=== PATIENT | female | born 1990 | race Caucasian/White ===

== ENCOUNTER 2016-04-14 16:07 | Emergency (ER) | payer BC, OTHER ==
--- NOTE | 2016-05-05 08:06 | ER ---
ADMIT: 04/14/2016 RM/LOC: ER [facility] MR#: [id number] [address] [id number] LUCIANO FOWLER [address] [place] [address] [place] [address] Emergency Room Report SEX: F AGE: 26 : 1990 DATE: 04/14/2016 ADDENDUM: CHIEF COMPLAINT: Left shoulder pain. HISTORY OF PRESENT ILLNESS: This is a 26-year-old who was walking a friend's dog. She tripped and fell onto her left shoulder. It does look an obvious displacement when she comes in. X-ray was done. It did show that it is dislocated. Dr. Gibson reduced with manipulation after 2 of Dilaudid was given. Postreduction showed that it was in place. Sent her home with a sling. Told her to do Tylenol or Motrin, ice for pain, and follow up with Orthopedic this week to be cleared to go back to full activity. CLINICAL IMPRESSION: Dislocated left shoulder, reduced in ER. SAMARA Castillo / Parker Gibson MD / tianna JOB #: [id number] CC: Parker Gibson MD, Attending Physician
== END 2016-04-14 18:10 | disposition home or self-care (01) ==
LOC: ER 16:07
PROC: 0RSKXZZ Reposition Left Shoulder Joint, External Approach (ICD-10-PCS; principal; 2016-04-14)
DX: S43.015A Anterior dislocation of left humerus, initial encounter (principal); Z88.1 Allergy status to other antibiotic agents; W18.09XA Striking against other object with subsequent fall, initial encounter; Y93.K1 Activity, walking an animal; Y99.8 Other external cause status; Y92.410 Unspecified street and highway as the place of occurrence of the external cause